=== PATIENT | female | born 1980 ===

== ENCOUNTER → 2023-11-06 | Outpatient (CLI) | payer OTHER ==
[2023-11-12 11:14] LABS: HPV HIGH RISK BY TMA Detected; HPV SOURCE Cervical
[2023-11-12 14:51] LABS: HPV GENOTYPE 16 BY TMA Detected; HPV GENOTYPE 18/45 BY TMA Not Detected; HPVG SOURCE Cervical
== END | disposition home or self-care (01) ==
LOC: LAB 18:47 → LAB SHORT 18:47
PROVIDERS: Family Medicine
DX: Z01.419 Encounter for gynecological examination (general) (routine) without abnormal findings (principal)
CPT/HCPCS: 87624; 87625; G0123

== ENCOUNTER → 2024-01-13 | Outpatient (CLI) | payer OTHER | LOC: LAB 07:22 → LAB SHORT 07:22 | DX: R87.629 Unspecified abnormal cytological findings in specimens from vagina (principal); R87.810 Cervical high risk human papillomavirus (HPV) DNA test positive | CPT/HCPCS: 88305; 88341; 88342 ==

== ENCOUNTER 2024-02-24 09:27 | Day surgery (SDC) | payer OTHER ==
[2024-02-24] VITALS (10 sets, daily range): BP systolic 90–145; BP diastolic 53–79
[~2024-02-24] VITALS: Ht 162.6 cm; Wt 61.4 kg
[~2024-02-24 09:27] MED LIST: ASCO500 PO; BLISOVI FE PO; FERSU300 PO; IBUP800 PO; Norco 5-325 Ta1 EACH PO; THERA-D2000 UNIT PO
[2024-02-24] MEDS ORDERED: Lactated Ringer's 1,000 ML IV SCH (09:50)
[2024-02-24] MEDS ORDERED: Midazolam HCl 1MG / ML 2ML Vial ONE (10:57)
[2024-02-24] MEDS ORDERED: propofoL 20 ML IV ONE ×2 (10:59→11:18)
[2024-02-24] MEDS ORDERED: FentaNYL Citrate 50 MCG/ML 2 ML Injection ONE (10:59)
[2024-02-24] MEDS ORDERED: Lidocaine 2%-Epineph 1:200000 20 ML SDV ONE (11:16)
[2024-02-24] MEDS ORDERED: Dexamethasone Sod Phos 10 MG/ML 1ML VIAL ONE (11:33)
[2024-02-24] MEDS ORDERED: Ondansetron HCl 2 MG / ML 2ML Vial ONE (11:33)
[2024-02-24] MEDS ORDERED: Ketorolac Tromethamine 30mg Vial ONE (12:01)
[2024-02-24] MEDS ORDERED: HYDROcodone 5-APAP 325 TAB PO PRN (12:10)
--- NOTE | 2024-02-24 13:07 | NUR ---
Checked andreina pad, minimal bloody discharge, quarter size. Pt ambulated to restroom independently. Discharge instructions reviewed with patient. Patient verbalizes understanding. Copy given to patient to take home.
== END 2024-02-24 13:09 | disposition home or self-care (01) ==
LOC: ORSCMMR 09:27 → ORD 11:00 → ORSCMMR 13:09
PROVIDERS: Obstetrics & Gynecology
PROC: 0UBC7ZX Excision of Cervix, Via Natural or Artificial Opening, Diagnostic (ICD-10-PCS; principal; 2024-02-24 11:00)
DX: D06.9 Carcinoma in situ of cervix, unspecified (principal)
CPT/HCPCS: 88307; A9270; J1100; J1885; J2250; J2405; J2704; J3010; J7120

== ENCOUNTER → 2024-04-14 | Outpatient (CLI) | payer OTHER ==
[2024-04-15 13:01] LABS: Stool Occult Bld Immuno 1 Negative (NEGATIVE)
== END ==
LOC: LAB SHORT 16:15 → LAB 16:15
PROVIDERS: Family Medicine
DX: Z12.11 Encounter for screening for malignant neoplasm of colon (principal)
CPT/HCPCS: G0328

== ENCOUNTER 2024-07-18 06:09 | Day surgery (SDC) | payer OTHER ==
[2024-07-18] VITALS (14 sets, daily range): BP systolic 88–135; BP diastolic 45–76
[~2024-07-18] VITALS: Ht 165.1 cm; Wt 62.6 kg
[~2024-07-18 06:09] MED LIST changes: +AMOCLA875 PO
[2024-07-18] MEDS ORDERED: CeFAZolin Sodium 2,000 MG in NS 100 ML IV SCH (06:15)
[2024-07-18] MEDS ORDERED: Lactated Ringer's 1,000 ML IV SCH ×2 (06:15→09:00)
[2024-07-18] MEDS ORDERED: CeFAZolin Sodium 2,000 MG VIAL ONE (06:36)
--- NOTE | 2024-07-18 06:44 | NUR ---
History, Chart, Medications and Allergies reviewed before start of procedure. Pre-Op teaching done. Pt verbalizes understanding. Patient confirms NPO status and agrees with scheduled surgery. PT BELONGINGS PLACED UNDER BED. PT GAVE BLACK JACKET TO SPOUSE AT BS.
[2024-07-18] MEDS ORDERED: Bupivacaine 0.5% W/EPI 1:200000 SDV 30 ML Vial ONE (06:54)
[2024-07-18] MEDS ORDERED: Dexmedetomidine HCL 200 MCG / 2 ML ONE (07:03)
[2024-07-18] MEDS ORDERED: propofoL 150 ML IV ONE (07:04)
[2024-07-18] MEDS ORDERED: Lidocaine HCl 4% 5 ML SDA ONE (07:04)
[2024-07-18] MEDS ORDERED: Acetaminophen 500 MG Tab PO SCH (07:15)
[2024-07-18] MEDS ORDERED: Ondansetron HCl 2 MG / ML 2ML Vial ONE (07:18)
[2024-07-18] MEDS ORDERED: Dexamethasone Sod Phos 10 MG/ML 1ML VIAL ONE (07:18)
[2024-07-18] MEDS ORDERED: Rocuronium Bromide 10 MG/ML 5ML Injection IV ONE (07:18)
[2024-07-18] MEDS ORDERED: Metoclopramide HCl 5MG / ML 2ML Vial ONE (07:18)
[2024-07-18] MEDS ORDERED: HYDROmorphone HCl/Pf 1MG SYR ONE (07:24)
[2024-07-18] MEDS ORDERED: Sugammadex Sodium 200 MG/2ML SDV (100 MG/ML) ONE ×2 (07:24→08:46)
[2024-07-18] MEDS ORDERED: DiphenhydrAMINE HCl 50 MG/ML 1ML Vial ONE (07:25)
[2024-07-18] MEDS ORDERED: Ketorolac Tromethamine 30mg Vial ONE (07:25)
[2024-07-18] MEDS ORDERED: Phenylephrine HCl 100 MCG/ML-NS 10MLSYR (1MG/10ML) ONE (07:42)
--- NOTE | 2024-07-18 08:00 | NUR ---
07/18/24 08 Werner Vicente PLACED KERR IN STERILE FASHON UNDER VERBAL ORDER OF DR. PLASCENCIA. KERR WILL BE REMOVED PRIOR TO LEAVING OR. WERNER TAN RN 07-18-24 @0800
[2024-07-18] MEDS ORDERED: FentaNYL Citrate 50 MCG/ML 2 ML Injection ONE (08:51)
[2024-07-18] MEDS ORDERED: DiphenhydrAMINE HCL 25 MG Cap PO PRN (08:55)
[2024-07-18] MEDS ORDERED: FLU VACC TS2024-25(6MOS UP)/PF 45 MCG/0.5 ML SYRINGE IM SCH (08:55)
[2024-07-18] MEDS ORDERED: HYDROmorphone HCl/Pf 1MG SYR IV PRN (08:55)
[2024-07-18] MEDS ORDERED: Ondansetron 4 MG TAB PO PRN (09:00)
[2024-07-18] MEDS ORDERED: Metoclopramide HCl 10 MG Tab PO PRN (09:00)
[2024-07-18] MEDS ORDERED: Ondansetron HCl 2 MG / ML 2ML Vial IV PRN (09:00)
[2024-07-18] MEDS ORDERED: OxyCODONE HCL 5 MG TAB PO PRN (09:00)
[2024-07-18] MEDS ORDERED: Acetaminophen 500 MG Tab PO PRN (09:00)
[2024-07-18] MEDS ORDERED: Lactated Ringer's 1,000 ML IV ONE (09:00)
[2024-07-18] MEDS ORDERED: Simethicone 80 MG Chew PO PRN (09:00)
[2024-07-18] MEDS ORDERED: ePHEDrine Sulfate 50 MG/ML 1ML Injection ONE (09:09)
[2024-07-18] MEDS ORDERED: Ketorolac Tromethamine 30mg Vial IV PRN (09:35)
--- NOTE | 2024-07-18 10:28 | NUR ---
TRANSFER TO UNIT AFTER RECEIVING REPORT FROM RECYCLING WORKER, PATIENT TRANSFERRED TO UNIT VIA [facility] AT APPROX 1000. PATIENT ALERT - ABLE TO STAND AND TRANSFER FROM [place] TO RESTROOM WITH SBA - DENIES DIZZINESS. VSS. S/P LAP TOTAL ABD HYSTER - X4 SITES WITH WOUND GLUE C/D/I. SCANT BLEEDING ON PAD. UP TO RESTROOM TO VOID - UNABLE TO DO SO. KERR CATHETER REMOVED IN OR PRIOR TO TRANSFER - REPORTS DISCOMFORT RELATED TO DEVICE. DENIES PAIN AT THIS TIME. IVF INFUSING TO GRAVITY. DENIES N/V - IVF INFUSING TO GRAVITY. CALL LIGHT IN REACH.
[2024-07-18] MEDS ORDERED: ACET500 PO (12:31)
[2024-07-18] MEDS ORDERED: IBUP400 PO (12:32)
[2024-07-18] MEDS ORDERED: SIME80CH PO (12:32)
[2024-07-18] MEDS ORDERED: OXYC5 PO (12:32)
--- NOTE | 2024-07-18 13:18 | NUR ---
DISCHARGE NOTE NO ACUTE CHANGES SINCE TRANSFER TO UNIT. PATIENT REMAINS ALERT - COMMUNICATES NEEDS EFFECTIVELY. VSS. S/P TOTAL LAP HYSTER - X4 LAP SITES C/D/I. PAIN MANAGED WITH PRESCRIBED MEDICATION, HEATING DEVICE, AND WITH WALKING. VOIDING. TOLERATING PO INTAKE. DC HOME ORDERED BY MD PLASCENCIA - PATIENT AGREEABLE WITH DC. IV REMOVED. WRITTEN AND VERBAL EDUCATION PROVIDED - PATIENT STATES UNDERSTANDING. PATIENT TRANSFERRED TO VEHICLE VIA AT APPROX 1310. PERSONAL BELONGINGS WITH PATIENT.
== END 2024-07-18 13:20 | disposition home or self-care (01) ==
LOC: ORSCMMR 06:09 → ORD 07:30 → SURS 10:15 → ORSCMMR 13:20
DX: D06.9 Carcinoma in situ of cervix, unspecified (principal); Q50.5 Embryonic cyst of broad ligament; N73.6 Female pelvic peritoneal adhesions (postinfective); I10 Essential (primary) hypertension
CPT/HCPCS: 88307; A9270; J0690; J1100; J1171; J1200; J1885; J2003; J2371; J2405; J2704; J2765; J3010; J7120

== ENCOUNTER → 2024-09-05 | Outpatient (CLI) | payer OTHER ==
[~2024-09-05] MED LIST changes: +ACET500 PO; +IBUP400 PO; +OXYC5 PO; +SIME80CH PO
[2024-09-05 08:31] LABS: BASOPHILS ABSOLUTE AUTO 0.04 K/mm3 (0.00-0.23); BASOPHILS PERCENT AUTO 0 % (0-2); EOSINOPHILS ABSOLUTE AUTO 0.03 K/mm3 (0.00-0.68); EOSINOPHILS PERCENT AUTO 0 % (0-6); Hematocrit 39.2 % (33.0-51.0); Hemoglobin 12.7 g/dL (11.5-16.0); IMMATURE GRAN ABSOLUTE AUTO 0.05 K/mm3 (0.00-0.10); IMMATURE GRAN PERCENT AUTO 0 % (0-1); LYMPHOCYTES ABSOLUTE AUTO 1.46 K/mm3 (0.84-5.20); LYMPHOCYTES PERCENT AUTO 13 % (21-46); MONOCYTES ABSOLUTE AUTO 0.74 K/mm3 (0.16-1.47); MONOCYTES PERCENT AUTO 6 % (4-13); Mean Corpuscular HGB 30.5 pg (26.0-34.0); Mean Corpuscular HGB Conc 32.4 g/dL (31.5-36.5); Mean Corpuscular Volume 94 fL (80-100); Mean Platelet Volume 10.3 fL (9.1-12.4); NEUTROPHILS ABSOLUTE AUTO 9.37 K/mm3 (1.96-9.15); NEUTROPHILS PERCENT AUTO 80 % (41-73); Platelet Count 407 K/mm3 (150-400); RDW Coefficient Variation 12.5 % (11.7-14.2); RDW Standard Deviation 43.3 fL (35.1-46.3); Red Blood Cell Count 4.16 M/mm3 (3.80-5.20); White Blood Cell Count 11.69 K/mm3 (4.00-11.30)
[2024-09-05 09:41] LABS: Thyroid Stimulating Hormone 1.46 uIU/mL (0.360-4.800)
[2024-09-05 09:42] LABS: Albumin, Blood 3.6 g/dL (3.4-5.0); Bilirubin, Total 1.9 mg/dL (0.1-1.0); Bun/Creatinine Ratio 14.8 (12.0-20.0); Calcium, Blood 8.8 mg/dL (8.5-10.1); Creatinine, Blood 0.54 mg/dL (0.40-1.00); Globulin, Blood 3.6 g/dL (2.2-4.0); Potassium, Blood 3.3 mmol/L (3.5-5.5); Total Protein, Blood 7.2 g/dL (6.4-8.2)
== END ==
LOC: LAB SHORT 08:26 → LAB 08:26
PROVIDERS: Physician Assistant
DX: N39.0 Urinary tract infection, site not specified (principal); R53.83 Other fatigue
CPT/HCPCS: 80053; 83690; 84443; 85025; 87086

== ENCOUNTER → 2025-03-23 | Outpatient (CLI) | payer OTHER | LOC: LAB 18:39 → LAB SHORT 18:39 | DX: N39.0 Urinary tract infection, site not specified (principal) | CPT/HCPCS: 87077; 87086; 87186 ==